=== PATIENT | male | born 1960 | race Two or more races ===

== ENCOUNTER 2024-07-13 16:31 | Emergency (ER) | payer OTHER ==
[~2024-07-13] VITALS: Ht 170.2 cm; Wt 79.0 kg
[~2024-07-13 16:31] MED LIST: AMLO-257 PO; OMEP-99 PO; OMEP20 PO; OMEP20TA2 PO; ONDA-104 PO; PENT400T72 PO
[2024-07-13 16:35] VITALS: TEMP 98.3
[2024-07-13 17:40] LABS: BASOPHILS % (AUTO) 0.7 % (0.0-2.0); EOSINOPHILS % (AUTO) 0.2 % (1.0-6.0); HEMATOCRIT 45.3 % (41-53); HEMOGLOBIN 15.2 g/dL (13.5-17.5); LYMPHOCYTES # (AUTO) 2.1 K/uL (1.0-4.8); LYMPHOCYTES % (AUTO) 44.2 % (22.0-44.0); MEAN CORPUSCULAR HEMOGLOBIN 28.7 pg (26.0-34.0); MEAN CORPUSCULAR HGB CONC 33.6 G/dL (31.0-37.0); MEAN CORPUSCULAR VOLUME 85 fL (80-100); MONOCYTES # (AUTO) 0.5 K/uL (0.1-1.0); MONOCYTES % (AUTO) 9.6 % (2.0-9.0); NEUTROPHILS # (AUTO) 2.2 K/uL (1.8-7.7); NEUTROPHILS % (AUTO) 45.3 % (40.0-70.0); PLATELET COUNT (AUTO) 264 K/uL (150-450); RED BLOOD CELL COUNT(AUTO) 5.31 MIL/uL (4.50-5.90); RED CELL DISTRIBUTION WIDTH 14.5 % (11.5-14.5); WHITE BLOOD COUNT (AUTO) 4.8 K/uL (4.5-11.0)
[2024-07-13 17:47] LABS: ANION GAP 16 mmol/L (8-16); CALCIUM, TOTAL 8.4 mg/dL (8.8-10.5); CARBON DIOXIDE 21 mmol/L (22-29); CHLORIDE 95 mmol/L (98-107); CREATININE 0.67 mg/dL (0.60-1.30); GLOMERULAR FILTR. RATE CALC > 60 mL/min (>60); GLUCOSE,RANDOM 133 mg/dL (70-110); POTASSIUM 3.2 mmol/L (3.5-5.1); SODIUM SERUM 132 mmol/L (136-145); UREA NITROGEN, BLOOD 12 mg/dL (7-18)
[2024-07-13 17:50] LABS: ALBUMIN 3.7 g/dL (3.4-5.0); BILIRUBIN,DIRECT 0.1 mg/dL (0.00-0.20); BILIRUBIN,TOTAL 0.4 mg/dL (0.1-1.0); TOTAL PROTEIN, SERUM 8.1 g/dL (6.4-8.2)
[2024-07-13 17:50] LABS: ALCOHOL, BLOOD (SERUM) 339 mg/dL (0-10)
[2024-07-13 18:17] VITALS: BP 138/88; PULSE 87; RESP 16; O2SAT 97
== END 2024-07-13 19:15 | disposition left against medical advice (07) ==
LOC: EMS 16:31
DX: R53.81 Other malaise (principal); R11.2 Nausea with vomiting, unspecified; Z53.21 Procedure and treatment not carried out due to patient leaving prior to being seen by health care provider
CPT/HCPCS: 36415; 80048; 80076; 85025; G0480